=== PATIENT | male | born 1985 | race African-American/Black ===

== ENCOUNTER 2017-03-04 22:06 | Emergency (ER) | payer OTHER ==
[2017-03-05 02:11] VITALS: BP 131/86
== END 2017-03-05 02:11 | disposition home or self-care (01) ==
LOC: ED 22:06
DX: S16.1XXA Strain of muscle, fascia and tendon at neck level, initial encounter (principal); M62.830 Muscle spasm of back; V89.2XXA Person injured in unspecified motor-vehicle accident, traffic, initial encounter; Y93.89 Activity, other specified; Y92.89 Other specified places as the place of occurrence of the external cause; Y99.8 Other external cause status

== ENCOUNTER 2017-03-25 16:33 | Emergency (ER) | payer OTHER ==
[2017-03-25 19:36] VITALS: BP 121/78
== END 2017-03-25 19:36 | disposition home or self-care (01) ==
LOC: ED 16:33
DX: S13.4XXA Sprain of ligaments of cervical spine, initial encounter (principal); M25.511 Pain in right shoulder; M25.512 Pain in left shoulder; Z90.5 Acquired absence of kidney; Z88.6 Allergy status to analgesic agent; Z87.438 Personal history of other diseases of male genital organs; V89.2XXA Person injured in unspecified motor-vehicle accident, traffic, initial encounter; Y93.89 Activity, other specified; Y99.8 Other external cause status; Y92.89 Other specified places as the place of occurrence of the external cause
CPT/HCPCS: J3010